=== PATIENT | male | born 1965 | race Caucasian/White ===

== ENCOUNTER 2017-02-11 07:59 | Outpatient (CLI) | payer MEDICAID ==
[2017-02-11 14:30] LABS: ALBUMIN/GLOBULIN RATIO 1.5 (1.0-2.2); BILIRUBIN,TOTAL 0.8 mg/dL (0.2-1.0); BUN - BLOOD UREA NITROGEN 14 mg/dL (6-20); CARBON DIOXIDE - CO2 30 mmol/L (21-32); CHLORIDE 102 mmol/L (101-111); CHOL/HDL RATIO 5.6 (<5.0); CHOLESTEROL 218 mg/dL; CREATININE 0.7 mg/dL (0.6-1.2); GFR - MDRD 119 (>89); GLUCOSE 113 mg/dL (70-100); HDL CHOLESTEROL 39 mg/dL; LDL/HDL RATIO 3.9 (<3.6); POTASSIUM 4.4 mmol/L (3.5-5.0); SODIUM 137 mmol/L (135-145); TOTAL PROTEIN 7.1 g/dL (6.7-8.2); TRIGLYCERIDES 140 mg/dL; VLDL CHOLESTEROL 28 mg/dL
== END 2017-02-11 08:00 | disposition home or self-care (01) ==
LOC: LAB.N 07:59
PROVIDERS: ATTEND Family Medicine
DX: E78.5 Hyperlipidemia, unspecified (principal); R73.01 Impaired fasting glucose; E66.9 Obesity, unspecified; I10 Essential (primary) hypertension
CPT/HCPCS: 36415; 80053; 80061

== ENCOUNTER 2017-07-13 14:55 | Emergency (ER) | payer MEDICAID ==
[2017-07-13 15:01] VITALS: BP 163/99
[2017-07-13] MEDS ORDERED: BUFFERED LIDOCAINE 10 ML SYRINGE ONE (16:00)
--- NOTE | 2017-07-13 16:00 | ED Physician Documentation ---
PD HPI UPPER EXT INJURY - Stated complaint Stated Complaint: LT THUMB INJ - Chief complaint Chief Complaint: Ext Problem - History obtained from History obtained from: Patient - History of Present Illness Location: Other (Right-handed gentleman who is up-to-date on tetanus cut his left thumb with a saw that he was working at home just prior to arrival.) Review of Systems Constitutional: reports: Reviewed and negative Nose: reports: Reviewed and negative Throat: reports: Reviewed and negative PD PAST MEDICAL HISTORY - Past Medical History Cardiovascular: Hypertension Respiratory: None Endocrine/Autoimmune: None GI: GERD : None HEENT: None Psych: None Musculoskeletal: Osteoarthritis, Chronic back pain, Other Derm: None - Present Medications Home Medications: Ambulatory Orders Medication Instructions Recorded Confirmed Aspirin [Cristhian Chewable Aspirin] 81 mg PO BID 04/12/14 04/12/14 Cholecalciferol (Vitamin D3) [D3 2,000 units PO DAILY 04/12/14 04/12/14 Dots] Lisinopril 20 mg DAILY 04/12/14 04/12/14 Multivitamin [Multi-Vitamin Daily] 1 tab PO DAILY 04/12/14 04/12/14 Ascorbic Acid [Vitamin C] 1,000 mg PO BID 07/13/17 07/13/17 Cephalexin [Keflex] 500 mg PO QID #20 capsule 07/13/17 - Allergies Allergies/Adverse Reactions: Allergies Allergy/AdvReac Type Severity Reaction Status Date / Time No Known Drug Allergies Allergy Verified 04/12/14 09:54 PD ED PE NORMAL - Vitals Vital signs reviewed: Yes - General General: Alert and oriented X 3, No acute distress - Extremities Extremities: Other (On the dorsum of the left thumb at the level of the interphalangeal joint there is a 1.5 cm oblique laceration without neurovascular compromise at the tip, on initial examination he has good strength in extension. The wound will be explored during suturing to rule out occult tendon laceration.) - Neuro Neuro: Alert and oriented X 3, Normal speech - Psych Psych: Normal mood, Normal affect Results - Vitals Vitals: Vital Signs - 24 hr 07/13/17 14:58 Temperature 36.7 C Heart Rate 99 Respiratory 16 Rate Blood Pressure 163/99 H O2 Saturation 94 Oxygen O2 Source Room air Procedures - Laceration (location) Left thumb Length in cm: 1.5 Wound type: Linear Neurovascular status: Sensory intact, Motor intact, Vascular intact Tendon involvement: Tendon Injury (small elen in radial side of extensor tendon , good function) Anesthesia: OTH (digital block with buffered lidocaine) Wound Preparation: Irrigated copiously NS Skin layer closure: Nylon, Interrupted, Size #-0 - enter number (4-0), Sutures - enter # (6) Other: Tetanus UTD Complexity: Simple PD MEDICAL DECISION MAKING - ED course ED course: 52-year-old gentleman with a laceration at the level of the interphalangeal joint of the nondominant thumb dorsally, he has good strength in extension and is neurovascularly intact but on exploration has a minor extensor tendon laceration. Case was discussed by phone with Dr. Omer who agreed with washout, closure of the skin, splinting for use with a Velcro splint and follow- up in clinic. Departure - Departure Disposition: 01 Home, Self Care Clinical Impression: Laceration of thumb Qualifiers: Encounter type: initial encounter Damage to nail status: without damage Foreign body presence: without foreign body Laterality: left Qualified Code(s): S61.012A - Laceration without foreign body of left thumb without damage to nail , initial encounter Condition: Good Record reviewed to determine appropriate education?: Yes Instructions: ED Laceration Hand Follow-Up: [facility] [Provider Group] - Within 1 week Prescriptions: Cephalexin [Keflex] 500 mg PO QID #20 capsule Comments: Wear the splint when working, but she do not need to wear it in bed or when showering. Come back for any signs of infection which would include: Redness, swelling, drainage, increased pain, or fevers. Follow-up in the orthopedics clinic in 1 week for recheck in 2 weeks for suture removal. Your blood pressure was elevated today on check into the emergency department. This does not mean that you have hypertension, it is a common phenomenon to come to the emergency department and have elevated blood pressure. I recommend that she see your primary care physician within the week to have it rechecked when you are feeling better.
[2017-07-13] MEDS ORDERED: CEPHALEXIN 250 MG CAPSULE PO STA (16:14)
[2017-07-13] MEDS ORDERED: CEPHALEXIN 250 MG CAPSULE PO ONE (16:33)
== END 2017-07-13 16:44 | disposition home or self-care (01) ==
LOC: ED 14:55
DX: S61.012A Laceration without foreign body of left thumb without damage to nail, initial encounter (principal); W27.0XXA Contact with workbench tool, initial encounter; Y92.019 Unspecified place in single-family (private) house as the place of occurrence of the external cause; I10 Essential (primary) hypertension; K21.9 Gastro-esophageal reflux disease without esophagitis; M19.90 Unspecified osteoarthritis, unspecified site; Z79.82 Long term (current) use of aspirin
CPT/HCPCS: 12001; 99283; A9270

== ENCOUNTER 2017-08-19 10:24 | Outpatient (CLI) | payer MEDICAID ==
[2017-08-19 13:29] LABS: ALBUMIN/GLOBULIN RATIO 1.5 (1.0-2.2); BILIRUBIN,TOTAL 0.7 mg/dL (0.2-1.0); BUN - BLOOD UREA NITROGEN 14 mg/dL (6-20); CARBON DIOXIDE - CO2 28 mmol/L (21-32); CHLORIDE 97 mmol/L (101-111); CHOL/HDL RATIO 4.4 (<5.0); CHOLESTEROL 231 mg/dL; CREATININE 0.8 mg/dL (0.6-1.2); GFR - MDRD 102 (>89); GLUCOSE 108 mg/dL (70-100); HDL CHOLESTEROL 52 mg/dL; LDL/HDL RATIO 3.2 (<3.6); POTASSIUM 4.1 mmol/L (3.5-5.0); SODIUM 133 mmol/L (135-145); TOTAL PROTEIN 7.3 g/dL (6.7-8.2); TRIGLYCERIDES 77 mg/dL; VLDL CHOLESTEROL 15 mg/dL
[2017-08-19 14:09] LABS: HEMOGLOBIN A1C 0.62 g/dL
== END 2017-08-19 10:25 | disposition home or self-care (01) ==
LOC: LAB.N 10:24
PROVIDERS: ATTEND Family Medicine
DX: E78.5 Hyperlipidemia, unspecified (principal); R73.01 Impaired fasting glucose; I10 Essential (primary) hypertension
CPT/HCPCS: 36415; 80053; 80061; 83036

== ENCOUNTER 2017-08-26 11:12 | Outpatient (CLI) | payer MEDICAID ==
--- NOTE | 2017-08-26 14:33 | XRAY Report ---
THREE VIEW LUMBAR SPINE: 08/26/2017 CLINICAL INDICATION: Pain. COMPARISON: 03/21/2015. FINDINGS: AP, lateral, and coned down views of the lumbar spine demonstrate stable mild degenerative disk disease. There is no evidence of interval fracture or subluxation. The bowel gas pattern is nor mal. IMPRESSION: MILD DEGENERATIVE CHANGES, STABLE. JOB #: [id number] EXT JOB #:[id number]
== END 2017-08-26 11:13 | disposition home or self-care (01) ==
LOC: DI.N 11:12
PROVIDERS: ATTEND Family Medicine
DX: M51.36 Other intervertebral disc degeneration, lumbar region (principal)
CPT/HCPCS: 72100

== ENCOUNTER 2017-12-09 07:48 | Outpatient (CLI) | payer MEDICAID ==
[2017-12-09 13:42] LABS: CALCIUM 8.8 mg/dL (8.5-10.3); CREATININE 0.8 mg/dL (0.6-1.2)
[2017-12-09 13:54] LABS: HB2 TOTAL 16.6 g/dL; HEMOGLOBIN A1C 0.61 g/dL; HEMOGLOBIN A1C % 5.5 % (4.6-6.2)
== END 2017-12-09 07:49 | disposition home or self-care (01) ==
LOC: LAB.N 07:48
PROVIDERS: ATTEND Family Medicine
DX: R73.01 Impaired fasting glucose (principal); I10 Essential (primary) hypertension
CPT/HCPCS: 36415; 80048; 83036

== ENCOUNTER 2018-06-22 08:00 | Outpatient (CLI) | payer MEDICAID ==
[2018-06-22 19:10] LABS: PSA FREE 0.1 ng/mL (0.16-2.81)
[2018-06-22 19:11] LABS: PSA TOTAL 0.46 ng/mL (0.000-2.000)
== END 2018-06-22 08:01 ==
LOC: LAB.N 08:00
PROVIDERS: ATTEND Family Medicine
DX: R35.1 Nocturia (principal)
CPT/HCPCS: 36415; 84154

== ENCOUNTER 2018-08-10 15:46 | Outpatient (CLI) | payer MEDICAID ==
--- NOTE | 2018-08-11 10:48 | XRAY Report ---
Reason: SCIATICA Procedure Date: 08/10/2018 Accession Number: [id number] / [id number] Procedure: XRN - Lumbar Spine Complete CPT Code: FULL RESULT: EXAM: LUMBOSACRAL SPINE RADIOGRAPHY EXAM DATE: 08/10/2018 04:37 PM. CLINICAL HISTORY: Sciatica. COMPARISONS: Lumbar spine 2 views 08/26/2017. TECHNIQUE: 3 views. FINDINGS: Alignment: Normal. No spondylolisthesis or scoliosis. Bones: Five lhc-vvw-pizgvub lumbar vertebral bodies are present. No fractures or bone lesions. Disks: Stable mild marginal osteophyte noted at T11-T12 and T12-L1. Disk heights are maintained. Facets: No degenerative changes. No spondylolysis noted on oblique views. Sacroiliac Joints: Unremarkable. Soft Tissues: Normal. The visualized bowel gas pattern is normal. IMPRESSION: Stable mild degenerative changes, commensurate with age. No spondylolisthesis or pars defect noted. RADIA
== END 2018-08-10 15:47 | disposition home or self-care (01) ==
LOC: DI.N 15:46
PROVIDERS: ATTEND Family Medicine
DX: M51.34 Other intervertebral disc degeneration, thoracic region (principal); M51.35 Other intervertebral disc degeneration, thoracolumbar region
CPT/HCPCS: 72110

== ENCOUNTER 2018-08-22 13:08 | Outpatient (CLI) | payer MEDICAID | END 2018-08-22 13:09 | disposition home or self-care (01) | LOC: RT.N 13:08 | PROVIDERS: ATTEND Family Medicine | DX: I49.9 Cardiac arrhythmia, unspecified (principal) | CPT/HCPCS: 93005 ==

== ENCOUNTER 2018-08-25 08:32 | Outpatient (CLI) | payer MEDICAID ==
[2018-08-25 13:23] LABS: ALBUMIN 4.6 g/dL (3.2-5.5); ALBUMIN/GLOBULIN RATIO 1.5 (1.0-2.2); ALKALINE PHOSPHATASE 44 IU/L (42-121); ALT ALANINE AMINOTRANSFERASE 24 IU/L (10-60); AST ASPARTATE AMINOTRANSFERASE 20 IU/L (10-42); BILIRUBIN,TOTAL 0.9 mg/dL (0.2-1.0); BUN - BLOOD UREA NITROGEN 22 mg/dL (6-20); CALCIUM 8.9 mg/dL (8.5-10.3); CARBON DIOXIDE - CO2 32 mmol/L (21-32); CHLORIDE 95 mmol/L (101-111); CHOL/HDL RATIO 4.7 (<5.0); CHOLESTEROL 256 mg/dL; CREATININE 0.9 mg/dL (0.6-1.2); GFR - MDRD 89 (>89); GLUCOSE 108 mg/dL (70-100); HDL CHOLESTEROL 55 mg/dL; LDL CHOLESTEROL,CALCULATED 176 mg/dL; LDL/HDL RATIO 3.2 (<3.6); SODIUM 134 mmol/L (135-145); TOTAL PROTEIN 7.6 g/dL (6.7-8.2); VLDL CHOLESTEROL 25 mg/dL
[2018-08-25 13:31] LABS: HB2 TOTAL 17.4 g/dL; HEMOGLOBIN A1C 0.63 g/dL; HEMOGLOBIN A1C % 5.5 % (4.6-6.2)
[2018-08-25 13:36] LABS: BASOPHILS % (AUTO) 0.5 %; EOSINOPHILS % (AUTO) 0.6 %; HGB - HEMOGLOBIN 15.8 g/dL (14.0-18.0); LYMPHOCYTES # (AUTO) 1.4 10^3/uL (1.5-3.5); LYMPHOCYTES % (AUTO) 17.7 %; MEAN CORPUSCULAR HEMOGLOBIN 32.2 pg (27.0-31.0); MEAN CORPUSCULAR HGB CONC 34.8 g/dL (32.0-36.0); MEAN CORPUSCULAR VOLUME 92.4 fL (80.0-94.0); MONOCYTES # (AUTO) 0.6 10^3/uL (0.0-1.0); MONOCYTES % (AUTO) 7.4 %; NEUTROPHILS # (AUTO) 5.7 10^3/uL (1.5-6.6); NEUTROPHILS % (AUTO) 73.8 %; PLT - PLATELET COUNT 218 10^3/uL (130-450); RED BLOOD COUNT 4.92 10^6/uL (4.70-6.10); RED CELL DISTRIBUTION WIDTH 12.5 % (12.0-15.0); WHITE BLOOD COUNT 7.7 x10^3/uL (4.8-10.8)
== END 2018-08-25 08:33 | disposition home or self-care (01) ==
LOC: LAB.N 08:32
PROVIDERS: ATTEND Family Medicine
DX: R73.01 Impaired fasting glucose (principal); E78.5 Hyperlipidemia, unspecified; I10 Essential (primary) hypertension
CPT/HCPCS: 36415; 80053; 80061; 83036; 83721; 84443; 85025

== ENCOUNTER 2019-02-09 08:00 | Outpatient (CLI) | payer MEDICAID ==
[2019-02-09 13:56] LABS: BUN - BLOOD UREA NITROGEN 17 mg/dL (6-20); CARBON DIOXIDE - CO2 30 mmol/L (21-32); CHLORIDE 100 mmol/L (101-111); CHOL/HDL RATIO 4.9 (<5.0); CHOLESTEROL 233 mg/dL; CREATININE 0.7 mg/dL (0.6-1.2); GFR - MDRD 118 (>89); GLUCOSE 120 mg/dL (70-100); HDL CHOLESTEROL 48 mg/dL; LDL CHOLESTEROL,CALCULATED 163 mg/dL; LDL/HDL RATIO 3.4 (<3.6); SODIUM 135 mmol/L (135-145); VLDL CHOLESTEROL 22 mg/dL
[2019-02-09 14:19] LABS: HB2 TOTAL 16.7 g/dL; HEMOGLOBIN A1C 0.62 g/dL; HEMOGLOBIN A1C % 5.5 % (4.6-6.2)
== END 2019-02-09 23:59 | disposition home or self-care (01) ==
LOC: LAB.N 08:00
PROVIDERS: ATTEND Physician Assistant Medical
DX: I10 Essential (primary) hypertension (principal); E78.5 Hyperlipidemia, unspecified; E66.9 Obesity, unspecified
CPT/HCPCS: 36415; 80048; 80061; 83036; 83721

== ENCOUNTER 2019-04-03 07:14 | Outpatient (CLI) | payer MEDICAID ==
[2019-04-03 12:18] LABS: CHOL/HDL RATIO 3.1 (<5.0); CHOLESTEROL 162 mg/dL; HDL CHOLESTEROL 52 mg/dL; LDL CHOLESTEROL,CALCULATED 97 mg/dL; LDL/HDL RATIO 1.9 (<3.6); VLDL CHOLESTEROL 13 mg/dL
== END 2019-04-03 23:59 | disposition home or self-care (01) ==
LOC: LAB.N 07:14
PROVIDERS: ATTEND Physician Assistant Medical
DX: E78.5 Hyperlipidemia, unspecified (principal)
CPT/HCPCS: 36415; 80061; 83721

== ENCOUNTER 2019-11-16 08:00 | Outpatient (CLI) | payer MEDICAID ==
[2019-11-16 12:42] LABS: PSA FREE 0.2 ng/mL (0.16-2.81)
[2019-11-16 12:43] LABS: ALBUMIN 4.2 g/dL (3.2-5.5); ALBUMIN/GLOBULIN RATIO 1.4 (1.0-2.2); ALKALINE PHOSPHATASE 44 IU/L (42-121); ALT ALANINE AMINOTRANSFERASE 30 IU/L (10-60); AST ASPARTATE AMINOTRANSFERASE 29 IU/L (10-42); BILIRUBIN,TOTAL 1.2 mg/dL (0.2-1.0); BUN - BLOOD UREA NITROGEN 16 mg/dL (6-20); CALCIUM 9.2 mg/dL (8.5-10.3); CARBON DIOXIDE - CO2 31 mmol/L (21-32); CHLORIDE 96 mmol/L (101-111); CHOL/HDL RATIO 3.5 (<5.0); CHOLESTEROL 160 mg/dL; CREATININE 0.8 mg/dL (0.6-1.2); GFR - MDRD 101 (>89); GLUCOSE 103 mg/dL (70-100); HDL CHOLESTEROL 46 mg/dL; LDL CHOLESTEROL,CALCULATED 94 mg/dL; PSA TOTAL 1.13 ng/mL (0.000-2.000); SODIUM 136 mmol/L (135-145); TOTAL PROTEIN 7.3 g/dL (6.7-8.2); VLDL CHOLESTEROL 20 mg/dL
== END 2019-11-16 23:59 | disposition home or self-care (01) ==
LOC: LAB.N 08:00
PROVIDERS: ATTEND Family Medicine
DX: R73.01 Impaired fasting glucose (principal); I10 Essential (primary) hypertension; E78.5 Hyperlipidemia, unspecified; R35.1 Nocturia
CPT/HCPCS: 36415; 80053; 80061; 83721; 84153; 84154

== ENCOUNTER 2019-12-07 10:33 | Outpatient (CLI) | payer MEDICAID ==
--- NOTE | 2019-12-07 16:22 | XRAY Report ---
Reason: PAIN IN RT SHLDR Procedure Date: 12/07/2019 Accession Number: [id number] / [id number] Procedure: XRN - Shoulder 2 View RT CPT Code: Final Report FULL RESULT: EXAM: RIGHT SHOULDER RADIOGRAPHY EXAM DATE: 12/07/2019 11:17 AM. CLINICAL HISTORY: PAIN IN RT SHLDR. COMPARISON: None. TECHNIQUE: 3 views. FINDINGS: Bones: Normal. No fracture or bone lesion. Joints: The glenohumeral and acromioclavicular joints are normal. Soft tissues: The visualized hemithorax is unremarkable. No soft tissue swelling. IMPRESSION: Normal shoulder radiography. RADIA
== END 2019-12-07 10:34 | disposition home or self-care (01) ==
LOC: DI.N 10:33
PROVIDERS: ATTEND Physician Assistant Medical
DX: M25.511 Pain in right shoulder (principal)

== ENCOUNTER 2020-05-30 07:20 | Outpatient (CLI) | payer MEDICAID ==
[2020-05-30 11:54] LABS: BASOPHILS % (AUTO) 0.4 %; EOSINOPHILS # (AUTO) 0.1 10^3/uL (0.0-0.7); EOSINOPHILS % (AUTO) 1.9 %; HGB - HEMOGLOBIN 13.7 g/dL (14.0-18.0); LYMPHOCYTES % (AUTO) 19.3 %; MEAN CORPUSCULAR HEMOGLOBIN 31.3 pg (27.0-31.0); MEAN CORPUSCULAR HGB CONC 32.7 g/dL (32.0-36.0); MEAN CORPUSCULAR VOLUME 95.7 fL (80.0-94.0); MEAN PLATELET VOLUME 8.8 fL (7.4-11.4); MONOCYTES # (AUTO) 0.9 10^3/uL (0.0-1.0); MONOCYTES % (AUTO) 16.3 %; NEUTROPHILS # (AUTO) 3.2 10^3/uL (1.5-6.6); NEUTROPHILS % (AUTO) 61.3 %; PLT - PLATELET COUNT 383 10^3/uL (130-450); RED BLOOD COUNT 4.38 10^6/uL (4.70-6.10); RED CELL DISTRIBUTION WIDTH 13.2 % (12.0-15.0); WHITE BLOOD COUNT 5.2 x10^3/uL (4.8-10.8)
[2020-05-30 12:10] LABS: ALBUMIN 3.9 g/dL (3.2-5.5); ALBUMIN/GLOBULIN RATIO 1.3 (1.0-2.2); BILIRUBIN,TOTAL 0.6 mg/dL (0.2-1.0); CALCIUM 9.1 mg/dL (8.5-10.3); CREATININE 0.7 mg/dL (0.6-1.2)
== END 2020-05-30 23:59 | disposition home or self-care (01) ==
LOC: LAB.WCP 07:20
PROVIDERS: ATTEND Family Medicine
DX: R53.81 Other malaise (principal)
CPT/HCPCS: 36415; 80053; 85025

== ENCOUNTER 2020-07-31 08:31 | Outpatient (CLI) | payer MEDICAID ==
[2020-07-31 12:08] LABS: BASOPHILS % (AUTO) 0.4 %; EOSINOPHILS # (AUTO) 0.1 10^3/uL (0.0-0.7); EOSINOPHILS % (AUTO) 1.4 %; HGB - HEMOGLOBIN 13.3 g/dL (14.0-18.0); LYMPHOCYTES # (AUTO) 0.5 10^3/uL (1.5-3.5); LYMPHOCYTES % (AUTO) 10.4 %; MEAN CORPUSCULAR HGB CONC 31.3 g/dL (32.0-36.0); MEAN CORPUSCULAR VOLUME 95.9 fL (80.0-94.0); MEAN PLATELET VOLUME 9.4 fL (7.4-11.4); MONOCYTES # (AUTO) 1.3 10^3/uL (0.0-1.0); MONOCYTES % (AUTO) 26.2 %; NEUTROPHILS # (AUTO) 3.1 10^3/uL (1.5-6.6); NEUTROPHILS % (AUTO) 60.8 %; PLT - PLATELET COUNT 308 10^3/uL (130-450); RED BLOOD COUNT 4.43 10^6/uL (4.70-6.10); RED CELL DISTRIBUTION WIDTH 14.4 % (12.0-15.0); WHITE BLOOD COUNT 5.1 x10^3/uL (4.8-10.8)
[2020-07-31 12:32] LABS: BILIRUBIN,URINE NEGATIVE (NEGATIVE); GLUCOSE, URINE (UA) NEGATIVE (NEGATIVE); KETONES,URINE (UA) NEGATIVE (NEGATIVE); LEUKOCYTE ESTERASE, URINE NEGATIVE (NEGATIVE); NITRITE,URINE NEGATIVE (NEGATIVE); OCCULT BLOOD,URINE NEGATIVE (NEGATIVE); PROTEIN,URINE NEGATIVE (NEGATIVE); UROBILINOGEN,URINE 0.2 (NORMAL) E.U./dL (NORMAL)
[2020-07-31 12:44] LABS: BACTERIA,URINE None Seen /HPF (None Seen); CLARITY,URINE CLEAR (CLEAR); RBC,URINE None Seen /HPF (0-5); SQUAMOUS EPITHELIAL CELL,UR NONE SEEN (<= Few)
[2020-07-31 13:56] LABS: ALBUMIN 3.8 g/dL (3.2-5.5); BILIRUBIN,TOTAL 0.5 mg/dL (0.2-1.0); CALCIUM 9.2 mg/dL (8.5-10.3); CREATININE 0.8 mg/dL (0.6-1.2); TOTAL PROTEIN 7.6 g/dL (6.7-8.2)
[2020-07-31 16:44] LABS: RHEUMATOID FACTOR NEGATIVE (Negative)
[2020-08-02 13:07] LABS: ANA SCREEN NEGATIVE (NEGATIVE)
== END 2020-07-31 23:59 | disposition home or self-care (01) ==
LOC: LAB.WCP 08:31
PROVIDERS: ATTEND Family Medicine
DX: A68.9 Relapsing fever, unspecified (principal)
CPT/HCPCS: 36415; 80053; 81001; 85025; 85651; 86038; 86140; 86430

== ENCOUNTER 2020-08-07 13:45 | Outpatient (CLI) | payer MEDICAID ==
--- NOTE | 2020-08-07 14:40 | XRAY Report ---
PROCEDURE: Chest 2 View X-Ray INDICATIONS: Recurrent fever of unknown origin TECHNIQUE: 2 view(s) of the chest. COMPARISON: None. FINDINGS: Surgical changes and devices: None. Lungs and pleura: No pleural effusions or pneumothorax. Lungs are clear. Mediastinum: Although not entirely definitive, there is asymmetric fullness of the left hilum. This c ould represent a left atrial appendage or vascular fullness, although left hilar lymphadenopathy j luis ot be strictly excluded radiographically. Bones and chest wall: No suspicious bony abnormalities. Soft tissues appear unremarkable. IMPRESSION: Suggestion of possible left hilar lymphadenopathy, although this could be artifactual due to left atr ial appendage or left main pulmonary artery fullness. In the absence of prior studies for comparison, CT of the chest with IV contrast would be recommended for further evaluation. Reviewed by: Ashish Ruvalcaba MD on 08/07/2020 2:38 PM PST Approved by: Ashish Ruvalcaba MD on 08/07/2020 2:38 PM PST Station ID: [id number]
--- NOTE | 2020-08-07 15:57 | XRAY Report ---
PROCEDURE: Lumbar Spine 2 View INDICATIONS: FEVER OF UNKNOWN ORIGIN,FEVER RECURRENT TECHNIQUE: 2 views of the lumbar spine were acquired. COMPARISON: 08.10.18 FINDINGS: Bones: 5 [id number]-jux-jtpibea vertebrae are present. There is normal bony alignment. No vertebral body compression fractures. No suspicious bony lesions. Multilevel disc space narrowing and endplate ost eophyte formation. Facet hypertrophy throughout the mid and lower lumbar spine. Soft tissues: Overlying bowel gas pattern is normal. No suspicious soft tissue calcifications. IMPRESSION: Multilevel degenerative disc and facet disease. No acute fracture. No osseous lesion. If symptoms and/or clinical suspicion for pathology continue, further assessment with repeat plain film s, or advanced imaging (e.g., CT, MRI, or bone scan) is recommended for further assessment. Reviewed by: Chidi Mortensen MD on 08/07/2020 3:56 PM PST Approved by: Chidi Mortensen MD on 08/07/2020 3:56 PM PST Station ID: [id number]
== END 2020-08-07 13:46 | disposition home or self-care (01) ==
LOC: DI 13:45
PROVIDERS: ATTEND Family Medicine
DX: M47.816 Spondylosis without myelopathy or radiculopathy, lumbar region (principal); M51.36 Other intervertebral disc degeneration, lumbar region; A68.9 Relapsing fever, unspecified
CPT/HCPCS: 71046; 72100

== ENCOUNTER 2020-08-15 08:30 | Outpatient (CLI) | payer MEDICAID ==
[2020-08-15] MEDS ORDERED: IOVERSOL 320 100 ML VIAL IVP ONE (08:39)
--- NOTE | 2020-08-15 09:19 | CT Report ---
PROCEDURE: CHEST W INDICATIONS: HILAR ADENOPATHY, LUMBAR RADICULOPATHY CONTRAST: IV CONTRAST: Optiray 320 ml: 100 PO CONTRAST: *NO PO CONTRAST TECHNIQUE: After the administration of intravenous contrast, 5 mm thick sections acquired from the pulmonary api lindsey to the posterior costophrenic angles. 7 mm thick coronal MIP reformats were acquired. For radia tion dose reduction, the following was used: automated exposure control, adjustment of mA and/or kV according to patient size. COMPARISON: None. FINDINGS: Image quality: Excellent. Lungs and pleura: No suspicious pulmonary nodule or mass. Trace atelectasis in the left lung base. No pleural effusion or other significant pleural abnormality. The central airways are clear. Mediastinum: Extensive bilateral hilar and mediastinal lymphadenopathy. Normal heart size. No pericar dial effusion. Normal caliber thoracic aorta and main pulmonary trunk. Bones and chest wall: There is left greater than right lymphadenopathy in the supraclavicular, subpec willard, and axillary stations. Left axillary and subpectoral lymphadenopathy is mildly bulky in appear ance. No suspicious lytic or blastic osseous lesion. Abdomen: The spleen is only partially visualized but is definitely enlarged measuring greater than 13 cm in craniocaudal dimension. There is extensive lymphadenopathy in the upper abdominal and upper re troperitoneal stations IMPRESSION: Extensive lymphadenopathy in the neck base, thorax, and upper abdomen/retroperitoneum. Findings are h ighly suggestive of lymphoma, particularly given history of cyclic fever., Although technically metas tatic disease could appear similar. Tissue diagnosis is recommended. Reviewed by: Ashish Ruvalcaba MD on 08/15/2020 9:18 AM [facility] Approved by: Ashish Ruvalcaba MD on 08/15/2020 9:18 AM PST Station ID: [id number]
--- NOTE | 2020-08-15 10:22 | MRI Report ---
PROCEDURE: Lumbar Spine W/O INDICATIONS: Lumbar radiculopathy. TECHNIQUE: Noncontrast sagittal T1 spin echo and T2 fast echo, sagittal STIR, axial T1 and T2 fast spin echo thr ough the lumbar spine. In cases with scoliosis, additional coronal T2 fast spin echo may be performe d. COMPARISON: None. FINDINGS: Image quality: Excellent. Alignment and Curvature: Normal lumbar vertebral body height and alignment. Bone Marrow: No marrow edema or suspicious focal marrow signal abnormality. Spinal Cord: Conus medullaris terminates at the normal level. Visualized cord demonstrates normal s ignal and size. Regional Soft Tissues: Bulky lymphadenopathy in the retroperitoneum and iliac stations is partially v isualized. T12-L1: Disc desiccation and height loss. Diffuse disc bulge flattens the ventral thecal sac. No mas s effect upon the distal conus or traversing nerve roots. No neural foraminal stenosis. L1-L2: No significant degenerative change, spinal canal stenosis, or neural foraminal stenosis. L2-L3: No significant degenerative change, spinal canal stenosis, or neural foraminal stenosis. L3-L4: Disc desiccation and mild disc height loss. Bulge flattens the ventral thecal sac without ma ss effect upon the traversing L4 nerve roots. Foraminal components of the distal tibia to mild bilate ral neural foraminal stenosis. L4-L5: Disc desiccation and disc height loss with diffuse disc bulge flattening the ventral thecal sac but producing no mass effect upon the traversing L5 nerve roots. Tracer foraminal narrowing relat ed to foraminal components of the disc bulge. L5-S1: Disc desiccation and disc height loss with diffuse disc bulge and a superimposed protrusion spanning the paracentral zones. Disc material flattens ventral thecal sac but produces no mass effect upon the traversing S1 nerve roots. Foraminal components of disc bulge contribute to mild bilateral neural foraminal stenosis. IMPRESSION: Partially visualized bulky lymphadenopathy in the retroperitoneal and iliac stations. Findings are co nsistent with lymphoma, with additional lymphadenopathy in the neck base, thorax, and abdomen seen on the CT chest also obtained today. Mild lower lumbar spine degenerative changes with no evidence of focal nerve root impingement. Reviewed by: Ashish Ruvalcaba MD on 08/15/2020 10:21 AM PST Approved by: Ashish Ruvalcaba MD on 08/15/2020 10:21 AM PST Station ID: [id number]
== END 2020-08-15 08:31 | disposition home or self-care (01) ==
LOC: DI 08:30
PROVIDERS: ATTEND Family Medicine
DX: R59.0 Localized enlarged lymph nodes (principal); M51.35 Other intervertebral disc degeneration, thoracolumbar region; M51.36 Other intervertebral disc degeneration, lumbar region; M48.061 Spinal stenosis, lumbar region without neurogenic claudication; M51.27 Other intervertebral disc displacement, lumbosacral region; M51.37 Other intervertebral disc degeneration, lumbosacral region; M48.07 Spinal stenosis, lumbosacral region
CPT/HCPCS: 71260; 72148; Q9967

== ENCOUNTER 2020-09-10 16:55 | Outpatient (CLI) | payer MEDICAID | END 2020-09-10 16:56 | disposition home or self-care (01) | LOC: COV 16:55 | PROVIDERS: ATTEND Surgery | DX: Z01.812 Encounter for preprocedural laboratory examination (principal); C85.94 Non-Hodgkin lymphoma, unspecified, lymph nodes of axilla and upper limb; Z20.828 Contact with and (suspected) exposure to other viral communicable diseases ==

== ENCOUNTER 2020-09-15 07:55 | Day surgery (SDC) | payer MEDICAID ==
[~2020-09-15 07:55] MED LIST: BUPIVACAINE 0.5%-EPI 1:200000 PF 30 ML VIAL ONE; CEFAZOLIN SODIUM IN 0.9 % NACL 2 GM/100 ML BAG IV ONE; LIDOCAINE 1% 50 ML MDV ONE
[2020-09-15 08:11] VITALS: BP 158/100
[2020-09-15] MEDS ORDERED: LACTATED RINGERS 1,000 ML IV ONE (08:14)
--- NOTE | 2020-09-15 09:00 | ANESTHESIA ---
Pre-Anesthesia VS, & Labs - Diagnosis Lymphoma - Procedure Left Ax Node Bx Vital Signs: Temp Pulse Resp BP Pulse Ox 36.4 C L 89 16 158/100 H 96 09/15/20 08:00 09/15/20 08:00 09/15/20 08:00 09/15/20 08:00 09/15/20 08:00 Height: 5 ft 11 in Weight (kg): 118.9 kg Body Mass Index: 36.5 BMI Classification: Obese - NPO >8 hours - Lab Results Lab results reviewed: Yes Home Medications and Allergies Home Medications: Ambulatory Orders Atorvastatin [Lipitor] 20 mg PO DAILY 09/04/20 predniSONE [Deltasone] 10 mg PO DAILY 09/04/20 Aspirin [Cristhian Chewable Aspirin] 81 mg PO BID 04/12/14 Cholecalciferol (Vitamin D3) [D3 Dots] 1,000 units PO DAILY 04/12/14 Lisinopril 40 mg PO DAILY 04/12/14 Multivitamin [Multi-Vitamin Daily] 1 tab PO DAILY 04/12/14 Ascorbic Acid [Vitamin C] 1,000 mg PO BID 07/13/17 Atorvastatin [Lipitor] 20 mg PO DAILY 09/04/20 predniSONE [Deltasone] 10 mg PO DAILY 09/04/20 Allergies/Adverse Reactions: Allergies Allergy/AdvReac Type Severity Reaction Status Date / Time No Known Drug Allergies Allergy Verified 09/05/20 09:18 Anes History & Medical History - Anesthetic History Anesthesia Complications: reports: No previous complications Family history of Anesthesia Complications: Denies Family history of Malignant Hyperthermia: Denies - Medical History Cardiovascular: reports: Hypertension, High cholesterol Pulmonary: reports: None Gastrointestinal: reports: GERD (Rare) Urinary: reports: None Neuro: reports: None Musculoskeletal: reports: Gout Endocrine/Autoimmune: reports: None Skin: reports: None Smoking Status: Never smoker Psychosocial: reports: Cannabis (Smoke and edible) History of Cancer?: Yes (Lymphoma) - Surgical History General: Other Exam General: Alert, Oriented x3, Cooperative, No acute distress Dental: WNL Mouth Opening: Greater than 4 Fingerbreadths Neck Mobility: Reduced Mallampati classification: I Thyromental Distance: 4-6 cm Respiratory: Lungs clear Cardiovascular: Regular rate, Normal S1, Normal S2, No murmurs Plan Anesthesia Type: General Consent for Procedure(s) Verified and Reviewed: Yes Code Status: Attempt Resuscitation ASA classification: 3-Severe systemic disease Is this case an emergency?: No (Discussed anesthesia, consent signed)
[2020-09-15] MEDS ORDERED: METOCLOPRAMIDE 10 MG/2 ML VIAL IVP PRN (09:02)
[2020-09-15] MEDS ORDERED: ATROPINE ABBOJECT 1 MG/10 ML SYRINGE IVP PRN (09:02)
[2020-09-15] MEDS ORDERED: NALOXONE 0.4 MG/ML VIAL IVP PRN (09:02)
[2020-09-15] MEDS ORDERED: ePHEDrine 50 MG/ML VIAL IVP PRN (09:02)
[2020-09-15] MEDS ORDERED: ONDANSETRON 4 MG/2 ML VIAL IVP PRN (09:02)
[2020-09-15] MEDS ORDERED: HYDROmorphone 0.5 MG/0.5 ML SYRINGE IVP PRN (09:02)
[2020-09-15] MEDS ORDERED: MORPHINE 2 MG/ML CARPUJECT IVP PRN (09:02)
[2020-09-15] MEDS ORDERED: fentaNYL 100 MCG/2 ML VIAL IVP PRN (09:02)
[2020-09-15] MEDS ORDERED: LACTATED RINGERS 1,000 ML IV SCH (10:00)
== END 2020-09-15 07:56 | disposition home or self-care (01) ==
LOC: SDS 07:55
PROVIDERS: ATTEND Surgery
DX: C85.88 Other specified types of non-Hodgkin lymphoma, lymph nodes of multiple sites (principal); Z53.9 Procedure and treatment not carried out, unspecified reason

== ENCOUNTER 2020-09-25 18:29 | Outpatient (CLI) | payer MEDICAID | END 2020-09-25 18:30 | disposition home or self-care (01) | LOC: COV 18:29 | PROVIDERS: ATTEND Surgery | DX: Z01.812 Encounter for preprocedural laboratory examination (principal); R59.1 Generalized enlarged lymph nodes; Z20.828 Contact with and (suspected) exposure to other viral communicable diseases ==

== ENCOUNTER 2020-09-29 07:33 | Day surgery (SDC) | payer MEDICAID ==
[2020-09-29] MEDS ORDERED: LACTATED RINGERS 1,000 ML IV ONE (08:01)
--- NOTE | 2020-09-29 08:41 | ANESTHESIA ---
Pre-Anesthesia VS, & Labs - Diagnosis Lymphoma - Procedure Axillary Node dissection Vital Signs: Temp Pulse Resp BP Pulse Ox 36.0 C L 88 20 155/81 H 97 09/29/20 07:45 09/29/20 07:45 09/29/20 07:45 09/29/20 07:45 09/29/20 07:45 Height: 5 ft 11 in Weight (kg): 118.2 kg Body Mass Index: 36.3 BMI Classification: Obese - NPO >8 hours - Lab Results Lab results reviewed: Yes Home Medications and Allergies Aspirin [Cristhian Chewable Aspirin] 81 mg PO BID 04/12/14 Cholecalciferol (Vitamin D3) [D3 Dots] 1,000 units PO DAILY 04/12/14 Lisinopril 20 mg PO DAILY 04/12/14 Multivitamin [Multi-Vitamin Daily] 1 tab PO DAILY 04/12/14 Ascorbic Acid [Vitamin C] 1,000 mg PO BID 07/13/17 Atorvastatin [Lipitor] 20 mg PO DAILY 09/04/20 predniSONE [Deltasone] 10 mg PO DAILY 09/04/20 Allergies/Adverse Reactions: Allergies Allergy/AdvReac Type Severity Reaction Status Date / Time No Known Drug Allergies Allergy Verified 09/05/20 09:18 Anes History & Medical History - Anesthetic History Anesthesia Complications: reports: No previous complications Family history of Anesthesia Complications: Denies Family history of Malignant Hyperthermia: Denies - Medical History Cardiovascular: reports: Hypertension, High cholesterol, Other (Sinus arrythmia on monitor. Pt stated found a while ago.) Pulmonary: reports: None Gastrointestinal: reports: GERD (Rare. No sx.) Urinary: reports: None Neuro: reports: Migraines (States at base of neck) Musculoskeletal: reports: Gout Endocrine/Autoimmune: reports: None Skin: reports: None Smoking Status: Never smoker Psychosocial: reports: No issues indicated History of Cancer?: Yes (Lymphoma) - Surgical History General: Other Exam General: Alert, Oriented x3, Cooperative, No acute distress Dental: WNL Mouth Openin Fingerbreadth Neck Mobility: Normal Mallampati classification: II Thyromental Distance: 4-6 cm Respiratory: Lungs clear Cardiovascular: Other (Sinus arrhythmia) Plan Anesthesia Type: General Consent for Procedure(s) Verified and Reviewed: Yes Code Status: Attempt Resuscitation ASA classification: 3-Severe systemic disease Is this case an emergency?: No (Discussed anesthetic, consent signed.)
[2020-09-29] MEDS ORDERED: ePHEDrine 50 MG/ML VIAL IVP PRN (08:46)
[2020-09-29] MEDS ORDERED: MORPHINE 2 MG/ML CARPUJECT IVP PRN (08:46)
[2020-09-29] MEDS ORDERED: NALOXONE 0.4 MG/ML VIAL IVP PRN (08:46)
[2020-09-29] MEDS ORDERED: HYDROmorphone 0.5 MG/0.5 ML SYRINGE IVP PRN (08:46)
[2020-09-29] MEDS ORDERED: METOCLOPRAMIDE 10 MG/2 ML VIAL IVP PRN (08:46)
[2020-09-29] MEDS ORDERED: ATROPINE ABBOJECT 1 MG/10 ML SYRINGE IVP PRN (08:46)
[2020-09-29] MEDS ORDERED: fentaNYL 100 MCG/2 ML VIAL IVP PRN (08:46)
[2020-09-29] MEDS ORDERED: ONDANSETRON 4 MG/2 ML VIAL IVP PRN ×2 (08:46→10:07)
[2020-09-29] MEDS ORDERED: LACTATED RINGERS 1,000 ML IV SCH (09:00)
[2020-09-29] MEDS ORDERED: MIDAZOLAM 2 MG/2 ML VIAL ONE (09:15)
[2020-09-29] MEDS ORDERED: BUPIVACAINE 0.5%-EPI 1:200000 PF 30 ML VIAL ONE (09:18)
[2020-09-29] MEDS ORDERED: LIDOCAINE 1% 50 ML MDV ONE (09:18)
[2020-09-29] MEDS ORDERED: LIDOCAINE 1% 50 ML MDV SUBQ ONE (09:40)
[2020-09-29] MEDS ORDERED: BUPIVACAINE 0.5%-EPI 1:200000 PF 30 ML VIAL SUBQ ONE (09:44)
[2020-09-29] MEDS ORDERED: fentaNYL 100 MCG/2 ML VIAL ONE (09:47)
[2020-09-29] MEDS ORDERED: LACTATED RINGERS 500 ML IV ONE (09:58)
--- NOTE | 2020-09-29 10:04 | OPERATIVE REPORT ---
Operative Report - General Procedure Date: 09/29/20 Planned Procedure: Left axillary node biopsy Pre-Op Diagnosis: Lymphadenopathy Procedure Performed: Excision of level 1 left axillary node Post Op Diagnosis: Lymphadenopathy and B symptoms - Procedure Note Primary Surgeon: Paolo Anesthesia Provider: SONIYA Hendricks Anesthesia Technique: General LMA Pathology: Lymph node to pathology Estimated Blood Loss (mL): 5 Findings: Large bi-lobed lymph node with other enlarged and palpable nodes in the area Complications: None apparent - Other Other Information/Narrative: After obtaining informed consent, the patient is brought to the operating room and placed in the supine position on the operating table. Following successful induction of general anesthesia, appropriate padding of all bony prominences, and placement of appropriate monitors, the left axilla was prepped and draped in the standard surgical fashion. A timeout was held per scope protocol. All elements of the surgical safety checklist were followed before, during, and after the procedure. Following infiltration with local anesthetic to create a field block, an incision was created in Rai's lines in the left axilla this was carried down through the skin and subcutaneous tissue to enter the axillary fat pad and node packet below. We immediately palpated the large left axillary node that we could feel externally. This was surrounded by other enlarged and matted nodes. The most inferior and grossly abnormal lymph node was identified. It was elevated and gently liberated from the surrounding tissue. All lymphatics and vasculature were clipped prior to division. The node was liberated into the field. It was divided and the portion placed in flow cytometry media. The remainder was submitted in formalin. The wound was checked for hemostasis. It was irrigated with warm water. It was closed in 2 layers with Vicryl and Monocryl sutures. All sponge, needle, and instrument counts were correct at the conclusion the case. The patient was allowed to wake from anesthesia without difficulty and taken to the postanesthesia care unit in good condition.
[2020-09-29] MEDS ORDERED: oxyCODONE 5 MG TABLET PO PRN (10:07)
[2020-09-29] MEDS ORDERED: ACETAMINOPHEN 325 MG TABLET PO PRN (10:07)
[2020-09-29] MEDS ORDERED: IBUPROFEN 600 MG TABLET PO PRN (10:07)
[2020-09-29] MEDS ORDERED: LIDOCAINE-MPF 2% 5 ML VIAL ONE (10:38)
[2020-09-29] MEDS ORDERED: PROPOFOL 200 MG/20 ML VIAL IVP ONE (10:38)
[2020-09-29] MEDS ORDERED: ceFAZolin 1 GM VIAL ONE (10:38)
[2020-09-29] MEDS ORDERED: DEXAMETHASONE 4 MG/ML VIAL ONE (10:39)
[2020-09-29] MEDS ORDERED: ONDANSETRON 4 MG/2 ML VIAL ONE (10:39)
[2020-09-29 10:55] VITALS: BP 120/64
--- NOTE | 2020-09-29 14:20 | ANESTHESIA POST OP EVALUATION ---
Anesthesia Post Eval - Post Anesthesia Eval Vitals: Last Vital Signs Temp 36.6 C 09/29/20 10:54 Pulse 62 09/29/20 10:54 Resp 16 09/29/20 10:54 BP 120/64 09/29/20 10:54 Pulse Ox 99 09/29/20 10:54 CV Function Including HR & BP: positive: Stable Pain Control: positive: Satisfactory Nausea & Vomiting: positive: Negative Mental Status: positive: Baseline Respiratory Status: Airway Patent Hydration Status: Satisfactory Anesthesia Complications: positive: None
== END 2020-09-29 07:34 | disposition home or self-care (01) ==
LOC: SDS 07:33
PROVIDERS: ATTEND Surgery
PROC: 07B60ZX Excision of Left Axillary Lymphatic, Open Approach, Diagnostic (ICD-10-PCS; principal; 2020-09-29 08:45)
DX: C85.84 Other specified types of non-Hodgkin lymphoma, lymph nodes of axilla and upper limb (principal); I10 Essential (primary) hypertension; E78.5 Hyperlipidemia, unspecified; E66.9 Obesity, unspecified; Z68.36 Body mass index [BMI] 36.0-36.9, adult; Z79.82 Long term (current) use of aspirin; Z79.899 Other long term (current) drug therapy; Z79.52 Long term (current) use of systemic steroids; M54.16 Radiculopathy, lumbar region; M54.30 Sciatica, unspecified side; R35.1 Nocturia
CPT/HCPCS: 38525; J7120

== ENCOUNTER 2020-10-14 08:53 | Outpatient (CLI) | payer MEDICAID | END 2020-10-14 08:54 | disposition home or self-care (01) | LOC: DI 08:53 | PROVIDERS: ATTEND Internal Medicine Hematology & Oncology | DX: C85.88 Other specified types of non-Hodgkin lymphoma, lymph nodes of multiple sites (principal); I34.0 Nonrheumatic mitral (valve) insufficiency; I27.20 Pulmonary hypertension, unspecified | CPT/HCPCS: 93306 ==

== ENCOUNTER 2020-10-15 08:00 | Outpatient (CLI) | payer MEDICAID ==
[2020-10-15 12:28] LABS: C. PNEUMONIAE- RESP PCR PANEL NOT DETECTED
== END 2020-10-15 08:01 | disposition home or self-care (01) ==
LOC: LAB 08:00
PROVIDERS: ATTEND Surgery
DX: Z01.812 Encounter for preprocedural laboratory examination (principal); C85.90 Non-Hodgkin lymphoma, unspecified, unspecified site; Z20.822 Contact with and (suspected) exposure to COVID-19
CPT/HCPCS: 0202U

== ENCOUNTER 2020-10-16 08:20 | Day surgery (SDC) | payer MEDICAID ==
[2020-10-16] MEDS ORDERED: LACTATED RINGERS 1,000 ML IV ONE ×2 (08:36→10:50)
[2020-10-16] MEDS ORDERED: ceFAZolin 2 GM/50 ML 2 GM/50 ML BAG IV ONE (08:55)
--- NOTE | 2020-10-16 09:23 | ANESTHESIA ---
Pre-Anesthesia VS, & Labs - Diagnosis lymphoma - Procedure port placement Vital Signs: Temp Pulse Resp BP Pulse Ox 37 C 87 18 127/76 96 10/16/20 08:47 10/16/20 08:47 10/16/20 08:47 10/16/20 08:47 10/16/20 08:47 Height: 5 ft 11 in Weight (kg): 113 kg Body Mass Index: 34.7 BMI Classification: Obese - NPO >8 hours - Lab Results Lab results reviewed: Yes Home Medications and Allergies Aspirin [Cristhian Chewable Aspirin] 81 mg PO BID 04/12/14 Cholecalciferol (Vitamin D3) [D3 Dots] 1,000 units PO DAILY 04/12/14 Lisinopril 20 mg PO DAILY 04/12/14 Multivitamin [Multi-Vitamin Daily] 1 tab PO DAILY 04/12/14 Ascorbic Acid [Vitamin C] 1,000 mg PO BID 07/13/17 Atorvastatin [Lipitor] 20 mg PO DAILY 09/04/20 predniSONE [Deltasone] 10 mg PO DAILY 09/04/20 Allergies/Adverse Reactions: Allergies Allergy/AdvReac Type Severity Reaction Status Date / Time No Known Drug Allergies Allergy Verified 10/14/20 10:22 Anes History & Medical History - Anesthetic History Anesthesia Complications: reports: No previous complications Family history of Anesthesia Complications: Denies Family history of Malignant Hyperthermia: Denies - Medical History Cardiovascular: reports: Hypertension, High cholesterol, Arrhythmia (PACs on tele this AM) Pulmonary: reports: None Gastrointestinal: reports: GERD Urinary: reports: None Neuro: reports: Migraines (States at base of neck) Musculoskeletal: reports: Gout Endocrine/Autoimmune: reports: None Skin: reports: None Smoking Status: Never smoker - Surgical History General: Other (axillary node biopsy) Exam General: Alert, Oriented x3, Cooperative Dental: WNL Mouth Opening: Greater than 4 Fingerbreadths Neck Mobility: Normal Mallampati classification: II Thyromental Distance: greater than 6 cm Respiratory: Lungs clear, Normal breath sounds, No respiratory distress Cardiovascular: Other (sinus, irregular, PACs on tele) Mental/Cognitive Status: Alert/Oriented X3, Normal for patient Cognitive Status: Within normal limits Plan Anesthesia Type: General Consent for Procedure(s) Verified and Reviewed: Yes Code Status: Attempt Resuscitation ASA classification: 3-Severe systemic disease Is this case an emergency?: No
[2020-10-16] MEDS ORDERED: LIDOCAINE-MPF 1% 30 ML VIAL ONE (09:34)
[2020-10-16] MEDS ORDERED: DEXAMETHASONE 4 MG/ML VIAL ONE (09:35)
[2020-10-16] MEDS ORDERED: LIDOCAINE-MPF 2% 5 ML VIAL ONE (09:35)
[2020-10-16] MEDS ORDERED: MIDAZOLAM 2 MG/2 ML VIAL ONE (09:35)
[2020-10-16] MEDS ORDERED: PROPOFOL 200 MG/20 ML VIAL IVP ONE (09:35)
[2020-10-16] MEDS ORDERED: ONDANSETRON 4 MG/2 ML VIAL ONE (09:35)
[2020-10-16] MEDS ORDERED: fentaNYL 100 MCG/2 ML VIAL ONE ×2 (10:04→10:28)
[2020-10-16] MEDS ORDERED: LIDOCAINE 1% 50 ML MDV SUBQ ONE ×2 (10:09)
[2020-10-16] MEDS ORDERED: ONDANSETRON 4 MG/2 ML VIAL IVP PRN (11:11)
[2020-10-16] MEDS ORDERED: oxyCODONE 5 MG TABLET PO PRN (11:11)
--- NOTE | 2020-10-16 11:14 | ANESTHESIA POST OP EVALUATION ---
Anesthesia Post Eval - Post Anesthesia Eval Vitals: Last Vital Signs Temp 36.3 C L 10/16/20 11:09 Pulse 78 10/16/20 11:09 Resp 23 10/16/20 11:09 BP 111/69 10/16/20 11:09 Pulse Ox 97 10/16/20 11:09 CV Function Including HR & BP: positive: Stable Pain Control: positive: Satisfactory Nausea & Vomiting: positive: Negative Mental Status: positive: Baseline Respiratory Status: Airway Patent Hydration Status: Satisfactory Anesthesia Complications: positive: None
--- NOTE | 2020-10-16 11:15 | OPERATIVE REPORT ---
Operative Report - General Procedure Date: 10/16/20 Planned Procedure: 1. Left internal jugular ultrasound venous access 2. Fluoroscopic guided central venous catheter placement 3. Left chest Mediport placement Pre-Op Diagnosis: Lymphoma, Hodgkin's; need for reliable central venous access in anticipatio Procedure Performed: 1. Left internal jugular ultrasound venous access 2. Fluoroscopic guided central venous catheter placement 3. Left chest Mediport placement Post Op Diagnosis: Same - Procedure Note Primary Surgeon: Enrique Secondary Surgeon: Ra Anesthesia Provider: Cesar Anesthesia Technique: General LMA, Local Estimated Blood Loss (mL): 10 Indications: See EMR Findings: 1. Normal pneumothorax 2. Successful access percutaneous of left internal jugular ultrasonographically 3. Successful placement of the Mediport without any kink or torsion at the atriocaval junction Complications: None - Other Other Information/Narrative: INTRAOPERATIVE FINDINGS: Left internal jugular was noted ultrasonographically. It was passed for the guidewire without any complication, which was confirmed by fluoroscopic imaging. The catheter ultimately was placed at the junction between the SVC and the atria of the atriocaval junction without any complication. Postoperative x-ray confirmed placement. Patient tolerated the procedure well fo r which there was no complication. The port flushed easily, it aspirated well. PROCEDURAL REPORT: Left internal jugular venous access tunneled catheter. The patient was prepped for his Left neck and chest in the usual sterile fashion. Time out was called and agreed to by all in the room. The ultrasound probe was draped with a sterile sleeve, and internal jugular was noted. The patient was placed in Trendelenburg, and the vein was cannulated using the introducer needle without any complication. There was venous return. The wire was easily passed through the introducer needle without any complication. The wire placement was confirmed at the atriocaval junction by fluoroscopic guidance. At this time, the wire was secured after the needle was removed, and we proceeded to create a pocket for the Port central venous access device. A small incision approximately 3-4 cm was made in the Left upper chest, approximately 4 cm below the clavicle. This was first initially instilled with 0.5% Marcaine and incised sharply using a scalpel. The subcutaneous tissues were divided using Bovie electrocautery, and using skin rakes and a Dain retractor, a pocket was made appropriate in subcutaneous fat in order to accommodate the low- profile Port. Once this was completed, the tunneler was used to access the left internal jugular access site after the skin surrounding the wire was incised using an 11 blade. The tunneler was then attached to the catheter, which had been flushed and brought through the subcutaneous tract, which was also instilled with 0.5% Marcaine before proceeding. Once this was completed, the introducer sheath was passed over the wire, and this was confirmed for placement fluoroscopically. With this in place, we thereafter removed both the wire and the introducer, and once this was completed, we threaded the catheter with a syringe attached to the other end into the break away sheath. Once passed completely, the sheath was broken while keeping the catheter in place, and the sheath was removed. Fluoroscopic guidance was used to confirm placement at the level of the atriocaval junction, and with this completed, we reduced the loop at the left neck incision, and the catheter remained in the subcutaneous fat. The catheter was aspirated of venous blood and easily flushed using heparinized saline. Once this was completed, the catheter was cut to length appropriately for the low-profile Port, and the hub was placed over the catheter, which was kept clamped with finger pressure to prevent air embolism and at this time was inserted into the Port device. This was in turn secured using the collar. The Port was thereafter placed into the subcutaneous pocket and through eyelets, it was secured in place with 2-0 Prolene stitches into the chest wall. This was secured bilaterally and also at the level of the collar and through the superior eyelet as well. At this time, we tested the port through the skin to assure that it flushed and aspirated well, and this was confirmed using heparinized saline. At this time, we closed the wounds in layers, after extensive irrigation, first reapproximating the deep subcutaneous fat, then approximating the skin with a deep dermal stitch, and thereafter ran a subcuticular using 4-0 Monocryl. This was done both at the port insertion site in the left chest and at the access site in the neck, both sites dressed with Dermabond. The patient tolerated the procedure well for which there was no complication. The patient was taken to the recovery room in stable condition. All counts for sponges, needles, instruments were correct at the conclusion of this operative intervention. Post-op XR was reviewed without any deviation.
--- NOTE | 2020-10-16 11:33 | XRAY Report ---
PROCEDURE: OR Port-A-Cath INDICATIONS: PORT PLACEMENT TECHNIQUE: Operative placement of a Port-A-Cath from left-sided approach COMPARISON: None. FINDINGS: The Port-A-Cath extends first cephalad and then caudad, with the inferior tip of the Port-A-Cath cros sing the midline and terminating at the expected position of the upper superior vena cava. IMPRESSION: Left-sided Port-A-Cath positioning as discussed, crossing the midline and entering the superior vena cava extending approximately to the azygos arch level. Reviewed by: Morgan Diaz MD on 10/16/2020 11:31 AM PST Approved by: Morgan Diaz MD on 10/16/2020 11:31 AM PST Station ID: [id number]
--- NOTE | 2020-10-16 11:45 | XRAY Report ---
PROCEDURE: Chest 1 View X-Ray INDICATIONS: port placement TECHNIQUE: One view of the chest was acquired. COMPARISON: Intraoperative C-arm images from earlier same day reviewed FINDINGS: Surgical changes and devices: Edna catheter from left-sided approach extends first cephalad and then extends inferiorly within the left jugular vein area crossing the midline and terminating within the expected region of the superior vena cava at the azygos arch area.. Lungs and pleura: No pleural effusions or pneumothorax. Lungs are clear. Mediastinum: Mediastinal contours appear normal. Heart size is normal. Bones and chest wall: No suspicious bony lesions. Overlying soft tissues appear unremarkable. IMPRESSION: No pneumothorax after Port-A-Cath placement from left-sided approach into the superior vena cava, azy gos arch area. Reviewed by: Morgan Diaz MD on 10/16/2020 11:43 AM PST Approved by: Morgan Diaz MD on 10/16/2020 11:43 AM [facility] Station ID: [id number]
[2020-10-16 11:48] VITALS: BP 12/79
== END 2020-10-16 08:21 | disposition home or self-care (01) ==
LOC: SDS 08:20
PROVIDERS: ATTEND Surgery
DX: C85.88 Other specified types of non-Hodgkin lymphoma, lymph nodes of multiple sites (principal); E66.9 Obesity, unspecified; Z68.34 Body mass index [BMI] 34.0-34.9, adult; I10 Essential (primary) hypertension; E78.00 Pure hypercholesterolemia, unspecified; I49.1 Atrial premature depolarization; Z79.899 Other long term (current) drug therapy; Z79.82 Long term (current) use of aspirin
CPT/HCPCS: 36561; 71045; C1788; J0690; J7120

== ENCOUNTER 2020-10-18 09:06 | Outpatient (CLI) | payer MEDICAID ==
--- NOTE | 2020-10-17 08:52 | ONCOLOGY FOLLOW UP ---
Oncology Follow-Up: To whom it may concern, Mr. Caleb Le is currently under my care for Stage IVB Hodgkin's Lymphoma. He is planned to start treatment as soon as possible. If left untreated, this disease can result in demise in the matter of weeks to a few months. This letter is provided per his request. Please do not hesitate to contact me if there is any question or concern. Sincerely, Jana Campbell MD Glass Frame Fitter/Oncologist Clinical Data: Allergies No Known Drug Allergies Allergy (Verified 10/14/20 10:22) Home Medications Aspirin [Cristhian Chewable Aspirin] 81 mg PO BID 04/12/14 [History Last Taken 10/15/20] Cholecalciferol (Vitamin D3) [D3 Dots] 1,000 units PO DAILY 04/12/14 [History Last Taken 10/15/20] Lisinopril 20 mg PO DAILY 04/12/14 [History Last Taken 10/15/20] Multivitamin [Multi-Vitamin Daily] 1 tab PO DAILY 04/12/14 [History Last Taken 10/15/20] Ascorbic Acid [Vitamin C] 1,000 mg PO BID 07/13/17 [History Last Taken 10/15/20] Atorvastatin [Lipitor] 20 mg PO DAILY 09/04/20 [History Last Taken 10/15/20] predniSONE [Deltasone] 10 mg PO DAILY 09/04/20 [History Last Taken 10/15/20]
== END 2020-10-18 09:07 | disposition home or self-care (01) ==
LOC: RT 09:06
PROVIDERS: ATTEND Physician Assistant
DX: Z01.818 Encounter for other preprocedural examination (principal)
CPT/HCPCS: 94010

== ENCOUNTER 2020-11-22 08:49 | Outpatient (CLI) | payer MEDICAID | END 2020-11-22 08:50 | disposition home or self-care (01) | LOC: RT 08:49 | PROVIDERS: ATTEND Internal Medicine Hematology & Oncology | DX: C81.14 Nodular sclerosis Hodgkin lymphoma, lymph nodes of axilla and upper limb (principal) | CPT/HCPCS: 94010; 94729 ==

== ENCOUNTER 2021-01-23 07:37 | Outpatient (CLI) | payer MEDICAID | END 2021-01-23 07:38 | disposition home or self-care (01) | LOC: DI 07:37 | PROVIDERS: ATTEND Internal Medicine Hematology & Oncology | DX: C81.18 Nodular sclerosis Hodgkin lymphoma, lymph nodes of multiple sites (principal); Z79.899 Other long term (current) drug therapy | CPT/HCPCS: 93306 ==

== ENCOUNTER 2021-01-27 09:13 | Outpatient (CLI) | payer MEDICAID | END 2021-01-27 09:14 | disposition home or self-care (01) | LOC: RT 09:13 | PROVIDERS: ATTEND Physician Assistant | DX: C81.18 Nodular sclerosis Hodgkin lymphoma, lymph nodes of multiple sites (principal) | CPT/HCPCS: 94010; 94729 ==

== ENCOUNTER 2022-11-18 11:02 | Day surgery (SDC) | payer MEDICAID ==
[2022-11-18] MEDS ORDERED: LACTATED RINGERS 1,000 ML IV ONE (11:42)
[2022-11-18] MEDS ORDERED: PROPOFOL 500 MG/50 ML 500 MG/50 ML VIAL ONE (14:02)
[2022-11-18] MEDS ORDERED: PROPOFOL 200 MG/20 ML VIAL IVP ONE (14:04)
--- NOTE | 2022-11-18 14:05 | HISTORY & PHYSICAL EXAMINATION ---
Chief Complaint - Chief Complaint Chief Complaint: here for colon cancer screening History of Present Illness - History Obtained From Records Reviewed: yes History obtained from: pt Exam Limitations: none - History of Present Illness HPI Comment/Other: no gi problems History - Past Medical History Cardiovascular: reports: Hypertension, High cholesterol, Arrhythmia Respiratory: reports: None Neuro: reports: Migraines (States at base of neck) Endocrine/Autoimmune: reports: None GI: reports: GERD, Hiatal hernia : reports: None HEENT: reports: Chronic vision loss Psych: reports: None Musculoskeletal: reports: Gout Derm: reports: None MRSA Hx?: No - Past Surgical History General: reports: Other - POLST Patient has POLST: No Meds/Allgy - Home Medications Home Medications: Ambulatory Orders Medication Instructions Recorded Confirmed No Known Home Medications 11/17/22 11/17/22 - Allergies Allergies/Adverse Reactions: Allergies Allergy/AdvReac Type Severity Reaction Status Date / Time No Known Drug Allergies Allergy Verified 04/10/21 10:56 Review of Systems - Other Findings Other Findings: 10 pt ros as above otherwise unremarkable Exam - Vital Signs Reviewed Vital Signs: Yes Vital Signs: Vital Signs x48h Temp Pulse Resp BP Pulse Ox 11/18/22 11:48 36.4 C L 63 16 142/98 H 95 - Physical Exam General Appearance: positive: No acute distress, Alert Eyes Bilateral: positive: PERRL, EOMI ENT: positive: No signs of dehydration Neck: positive: No JVD, Trachea midline Respiratory: positive: No respiratory distress, Breath sounds nml Cardiovascular: positive: Regular rate & rhythm Abdomen: positive: Non-tender Neurologic/Psychiatric: positive: Oriented x3 Conclusion/Plan - Problem List (1) Colon cancer screening Conclusion/Plan: plan colonoscopy. parq held and consent obtained
--- NOTE | 2022-11-18 14:15 | ANESTHESIA ---
Pre-Anesthesia VS, & Labs - Diagnosis screening - Procedure colonoscopy Vital Signs: Temp Pulse Resp BP Pulse Ox O2 Flow Rate 36.4 C L 63 16 142/98 H 95 11/18/22 11:48 11/18/22 11:48 11/18/22 11:48 11/18/22 11:48 11/18/22 11:48 Height: 5 ft 11 in Weight (kg): 99 kg Body Mass Index: 30.4 BMI Classification: Obese - NPO >8 hours Home Medications and Allergies Home Medications: Ambulatory Orders No Known Home Medications 11/17/22 No Known Home Medications 11/17/22 Allergies/Adverse Reactions: Allergies Allergy/AdvReac Type Severity Reaction Status Date / Time No Known Drug Allergies Allergy Verified 04/10/21 10:56 Anes History & Medical History - Anesthetic History Anesthesia Complications: reports: No previous complications Family history of Anesthesia Complications: Denies Family history of Malignant Hyperthermia: Denies - Medical History Cardiovascular: reports: Hypertension, High cholesterol, Arrhythmia Pulmonary: reports: None Gastrointestinal: reports: GERD, Hiatal hernia Urinary: reports: None Neuro: reports: Migraines (States at base of neck) Musculoskeletal: reports: Gout Endocrine/Autoimmune: reports: None Skin: reports: None Smoking Status: Never smoker - Surgical History General: reports: Other Exam General: Alert, Oriented x3, Cooperative Dental: WNL Mouth Openin Fingerbreadth Neck Mobility: Normal Mallampati classification: II Thyromental Distance: 4-6 cm Respiratory: Lungs clear Cardiovascular: Regular rate Plan Anesthesia Type: General, Total IV Consent for Procedure(s) Verified and Reviewed: Yes Code Status: Attempt Resuscitation ASA classification: 2-Mild systemic disease Is this case an emergency?: No
[2022-11-18] MEDS ORDERED: LACTATED RINGERS IV ONE (14:45)
[2022-11-18 15:00] VITALS: BP 146/89
--- NOTE | 2022-11-18 17:50 | ANESTHESIA POST OP EVALUATION ---
Anesthesia Post Eval - Post Anesthesia Eval Vitals: Last Vital Signs Temp 36.1 C L 11/18/22 14:52 Pulse 84 11/18/22 14:59 Resp 13 11/18/22 14:59 BP 146/89 H 11/18/22 14:59 Pulse Ox 100 11/18/22 14:59 O2 Flow Rate CV Function Including HR & BP: Stable Pain Control: Satisfactory Nausea & Vomiting: Negative Mental Status: Baseline Respiratory Status: Airway Patent Hydration Status: Satisfactory Anesthesia Complications: None
== END 2022-11-18 11:03 | disposition home or self-care (01) ==
LOC: SDS 11:02
PROVIDERS: ATTEND Surgery
PROC: 0DBL8ZZ Excision of Transverse Colon, Via Natural or Artificial Opening Endoscopic (ICD-10-PCS; principal; 2022-11-18 13:00)
DX: Z12.11 Encounter for screening for malignant neoplasm of colon (principal); D12.3 Benign neoplasm of transverse colon; K57.30 Diverticulosis of large intestine without perforation or abscess without bleeding; E66.9 Obesity, unspecified; Z68.30 Body mass index [BMI] 30.0-30.9, adult
CPT/HCPCS: 45380; J7120

== ENCOUNTER 2024-05-23 22:59 | Outpatient (CLI) | payer MEDICARE ==
--- NOTE | 2024-05-23 23:45 | Ultrasound Report ---
PROCEDURE: Duplex Ext Veins Right INDICATIONS: R LEG SWELLING TECHNIQUE: Real-time imaging, as well as color and pulse Doppler interrogation, were performed of the lower extr emity deep veins from the inguinal ligament to the popliteal fossa. Attempted visualization of the ca lf veins was performed. COMPARISON: None. FINDINGS: Deep venous thrombosis extending from the mid superficial femoral vein to the popliteal vei n and into the veins of the calf. Ventura's cyst measuring 2.3 x 1.1 x 1.8 cm. IMPRESSION: Deep venous thrombosis as above. Patient was sent to the ED for further evaluation. Reviewed by: Damion Antonio MD on 05/23/2024 11:44 PM PDT Approved by: Damion Antonio MD on 05/23/2024 11:44 PM PDT Station ID: [id number]
== END 2024-05-23 23:00 | disposition home or self-care (01) ==
LOC: DI 22:59
PROVIDERS: ATTEND Physician Assistant
DX: I82.411 Acute embolism and thrombosis of right femoral vein (principal); I82.431 Acute embolism and thrombosis of right popliteal vein

== ENCOUNTER 2024-05-23 23:27 | Emergency (ER) | payer MEDICARE ==
[2024-05-24] MEDS: APIXABAN 5 MG TABLET PO STA (00:04)
--- NOTE | 2024-05-24 00:04 | ED Physician Documentation ---
History of Present Illness - Stated complaint Stated Complaint: R LEG SWELLING - Chief complaint Chief Complaint: Ext Problem - History obtained from History obtained from: Patient - Additonal information Additional information: The patient is sent to the emergency department for chief complaint of "I have a blood clot in my leg". The patient was sent for an outpatient ultrasound and the vascular technician found the patient to have extensive DVT in his Right lower extremity. She sent the patient here for further evaluation. The patient states that he has been noticing swelling increasingly over recent weeks but it has been somewhat fluctuating. He was trying to hold out for his appointment with his primary doctor, Dr. Mccord, which is in about a week; however, he was noticing increased swelling yesterday and decided he should just get things checked out. He went to the walk-in clinic and saw BARBY Landin who ordered the ultrasound that was done tonight. The patient states that he has not had any chest pain or shortness of breath. He has otherwise been feeling fairly well. He has a history of smoking and prior history of leukemia. He feels sometimes as though he has been running a low-grade fever. His ultrasound clot from the femoral vein all the way to the popliteal and beyond. It being the middle of the night, the ordering PA was unreachable by phone by the vascular technician so she had the patient come here. PD PAST MEDICAL HISTORY - Past Medical History Past Medical History: Yes Cardiovascular: Hypertension, High cholesterol, Arrhythmia Respiratory: None Neuro: Migraines Endocrine/Autoimmune: None GI: GERD, Hiatal hernia : None HEENT: Chronic vision loss Psych: None Musculoskeletal: Gout Derm: None - Past Surgical History Past Surgical History: Yes General: Other - Present Medications Home Medications: Ambulatory Orders Medication Instructions Recorded Confirmed Apixaban [Eliquis] 5 mg PO BID #60 tab 05/24/24 - Allergies Allergies/Adverse Reactions: Allergies Allergy/AdvReac Type Severity Reaction Status Date / Time No Known Drug Allergies Allergy Verified 05/23/24 23:36 - Social History Does the pt smoke?: No Smoking Status: Never smoker Does the pt drink ETOH?: No Does the pt have substance abuse?: No - Immunizations Immunizations are current?: Yes - POLST Patient has POLST: No PD ED PE NORMAL - Vitals Vital signs reviewed: Yes - General General: Alert and oriented X 3, No acute distress, Well developed/nourished - HEENT HEENT: Atraumatic, EOMI, Moist mucous membranes - Neck Neck: Supple, no meningeal sign - Cardiac Cardiac: RRR, No murmur, Strong equal pulses - Respiratory Respiratory: No respiratory distress, Clear bilaterally - Derm Derm: Normal color, Warm and dry, No rash - Extremities Extremities: No deformity, Other (1+ pitting edema with fullness of the right calf. Left calf is smaller and much softer and without pitting edema.) - Neuro Neuro: Alert and oriented X 3 - Psych Psych: Normal mood, Normal affect Results - Vitals Vitals: Vital Signs - 24 hr 05/23/24 05/23/24 23:33 23:36 Temperature 36.4 C L Heart Rate 80 80 Respiratory 18 Rate Blood Pressure 142/92 H O2 Saturation 97 Oxygen O2 Source Room air - Rads (name of study) Ultrasound right lower extremity Relevant Findings:: Final report received, See rad report (Extensive clot from femoral vein past popliteal) PD Medical Decision Making - ED course Complexity details: reviewed results, re-evaluated patient, considered differential, d/w patient ED course: The patient was given a dose of Eliquis here in the emergency department and I have sent a prescription for the same to the pharmacy of his choice. He has an appointment scheduled with his primary doctor, Dr. Mccord, in about a week and I have strongly encouraged him to keep this appointment, at all costs. He does not have any symptoms suggestive of a pulmonary embolism tonight and his vital signs are reassuring in this regard. We have discussed the need for close and regular follow-up for his clots. We have also discussed symptoms of PE which should prompt the patient to come immediately to the emergency department. Departure - Departure Disposition: 01 Home, Self Care Clinical Impression: Deep vein thrombosis Qualifiers: DVT location: lower extremity Affected thrombotic vein of extremity: unspecified vein of extremity Chronicity: acute Laterality: right Qualified Code(s): I82.401 - Acute embolism and thrombosis of unspecified deep veins of right lower extremity Condition: Stable Instructions: ED DVT Prescriptions: Apixaban [Eliquis] 5 mg PO BID #60 tab Comments: Your ultrasound tonight showed extensive clot throughout the veins of your right leg. You have been started on a blood thinner for this tonight, and will need to take your blood thinners every day, as directed, until your primary doctor gives you further instructions in this regard. When you follow-up with Dr. Mccord, you should discuss the blood thinners you are currently on and see what he would like the plan to be going forward. In general, you will usually be on blood thinners for 6 to 9 months after a clot., And for some people, they will be on blood thinners for life. Your primary doctor can advise you further in t his regard. Right now, you do not have any evidence of a blood clot having broken loose and gone into your lung circulation. The symptoms of this are generally chest pain and shortness of breath, this some people have fainting or lightheadedness and fevers or coughing up blood. If anything like this happens, or you have any further concerns from an emergent perspective, you should return to the emergency department. Otherwise, please keep your appointment with Dr. Mccord at all costs as it is very important to have follow-up for blood clots. The prescription for your blood thinners has been electronically transmitted to the [facility] in [place] and you should pick it up first thing in the morning.
[2024-05-24 00:23] VITALS: BP 140/91; O2SAT 99
== END 2024-05-24 00:17 | disposition home or self-care (01) ==
LOC: ED 23:27
DX: I82.411 Acute embolism and thrombosis of right femoral vein (principal); I82.431 Acute embolism and thrombosis of right popliteal vein; Z87.891 Personal history of nicotine dependence
CPT/HCPCS: 93971; 99283; A9270